=== PATIENT | male | born 1950 | race Caucasian/White ===

== ENCOUNTER 2023-09-09 13:20 | Outpatient (OUT) | payer MEDICARE, SELFPAY ==
--- NOTE | 2023-09-09 13:32 | XR_ITS ---
The [address] [address] Patient Name: LEVON CARRERA MRN: [id number] date: 1950 Sex: M Assigned Patient Location: LAB Current Patient Location: Accession/Order Number: [id number] Exam Date: 09/09/2023 13:38 Report Date: 09/10/2023 06:48 At the request of: GEOVANY MARTIN Procedure: XR abdomen 1V EXAMINATION: XR abdomen 1V HISTORY: calculus of kidney N20.0 COMPARISON: XR KUB 06/27/2022 FINDINGS: KIDNEY/URETER - RIGHT: No visible renal or ureteral calcifications. KIDNEY/URETER - LEFT: No visible renal or ureteral calcifications. PELVIS: No visible ureteral stones. Left pelvic calcifications are stable and favor phleboliths. BOWEL: No abnormal dilation or deviation. BONES: Degenerative changes and prior surgical changes of lumbar spine. OTHER: Negative. No abnormal gaseous collections. XR/XR abdomen 1V IMPRESSION: 1. No appreciable urinary tract calculi. Evaluation is limited by large amount of dense overlying bowel content. Electronically authenticated by: MYRON GARCES Date: 09/10/2023 06:48
[2023-09-10 15:09] LABS: PSA, Free 0.94 ng/mL; Prostate Specific Ag 3.1 ng/mL (0.0-4.0)
== END 2023-09-09 13:21 | disposition home or self-care (01) ==
LOC: LAB 13:22
PROVIDERS: PCP Family Medicine; Visit Provider Urology
DX: N20.0 Calculus of kidney (principal); R97.20 Elevated prostate specific antigen [PSA]
CPT/HCPCS: 36415; 74018; 84153; 84154

== ENCOUNTER 2024-09-19 07:11 | Outpatient (OUT) | payer MEDICARE, SELFPAY ==
--- NOTE | 2024-09-19 07:14 | US_ITS ---
The [address] [address] Patient Name: LEVON CARRERA MRN: [id number] date: 1950 Sex: M Assigned Patient Location: US Current Patient Location: US Accession/Order Number: [id number] Exam Date: 09/19/2024 10:10 Report Date: 09/19/2024 10:18 At the request of: GEOVANY MARTIN MD Procedure: US renal BI BILATERAL RENAL AND BLADDER ULTRASOUND CLINICAL HISTORY: Elevated PSA, H/O kidney stone COMPARISON: 10/30/2020 Estimation of renal size is approximately 10.8 cm on the right and 11.7 cm on the left. A suspected stone is present at the superior pole on the left measuring approximately 5 mm in size. No hydronephrosis is seen. There are right renal cysts measuring up to 14 x 13 x 10 mm. There is no perinephric fluid. The urinary bladder is partially distended with a volume of 104 mL. No contour or intraluminal abnormalities are seen. US/US renal BI IMPRESSION: RIGHT RENAL CYSTS. POTENTIAL LEFT NEPHROLITHIASIS. NO OBSTRUCTIVE UROPATHY. Impression dictated by: Miracle Caro M.D.09/19/2024 10:18 AM Dictation Location: [place] [address] Electronically authenticated by: [id number] Y Date: 09/19/2024 10:18
--- NOTE | 2024-09-19 07:37 | XR_ITS ---
The [address] [address] Patient Name: LEVON CARRERA MRN: [id number] date: 1950 Sex: M Assigned Patient Location: US Current Patient Location: US Accession/Order Number: [id number] Exam Date: 09/19/2024 10:15 Report Date: 09/19/2024 10:16 At the request of: GEOVANY MARTIN MD Procedure: XR abdomen 1V SINGLE VIEW ABDOMEN COMPARISON: 09/09/2023 CLINICAL DATA: History of kidney stones. Supine view of the abdomen and pelvis was obtained. There is small and large bowel air without disproportionate distention. There is distal colonic stool. Both kidneys are partially obscured. No obvious radiopaque renal or ureteral stones are noted. No soft tissue masses are seen. There are postoperative and degenerative changes at the spine. XR/XR abdomen 1V IMPRESSION: NO OBVIOUS RADIOPAQUE STONES. Impression dictated by: Miracle Caro M.D.09/19/2024 10:16 AM Dictation Location: [place] [address] Electronically authenticated by: [id number] Y Date: 09/19/2024 10:16
[2024-09-20 04:07] LABS: PSA, Free 1.19 ng/mL
== END 2024-09-19 07:12 | disposition home or self-care (01) ==
PROVIDERS: PCP Family Medicine; Visit Provider Urology
DX: R97.20 Elevated prostate specific antigen [PSA] (principal); Z87.442 Personal history of urinary calculi; N28.1 Cyst of kidney, acquired
CPT/HCPCS: 36415; 74018; 76775; 84153; 84154